=== PATIENT | male | born 1965 | race Caucasian/White ===

== ENCOUNTER 2024-01-18 12:39 | Emergency (ER) | payer MEDICARE, SELFPAY ==
[2024-01-18 12:41] VITALS: BP 182/111
[2024-01-18 13:11] VITALS: BMI 36.6
[2024-01-18 13:23] VITALS: BP 139/100
[2024-01-18 13:23] LABS: Hematocrit 45.2 % (39.0-52.0); Hemoglobin 15.2 g/dL (13.0-18.0); Mean Corp Hgb Conc. 33.6 g/dL (33.0-37.0); Mean Corpuscular Hgb 29.7 pg (27.0-31.0); Mean Corpuscular Volume 88.3 fL (80.0-94.0); Mean Platelet Volume 11.3 fL (7.4-10.4); Platelet Count 229 10^3/uL (130-400); Red Blood Cell Count 5.12 10^6/uL (4.70-6.10); Red Cell Dist. Width 14.4 % (11.5-14.5); White Blood Cell Count 9.2 10^3/uL (4.8-10.8)
[2024-01-18 13:30] VITALS: BP 130/80
--- NOTE | 2024-01-18 13:30 | ED.CVA ---
History of Present Illness
General
Chief Complaint: CVA/TIA Symptoms
Source: patient
Exam Limitations: none
Time Seen by Provider: 01/18/24 12:45
Nursing documentation reviewed up to this point in time: agreed with
Onset of Stroke Symptoms
Onset of symptoms known: Yes
Date of onset of symptoms: 01/17/24
Travel History
Have you had any contact with someone who has COVID-19?: No
Do you have any symptoms of coronavirus? Fever > 100 degrees, chills, cough, shortness of breath, sore throat, loss of taste or smell, muscle aches, or headache?: No
History of Present Illness
History of Present Illness:
Patient presents to ED secondary to sudden onset of left facial droop along with difficulty speech and difficulty closing his left eye, noted yesterday, but symptoms worse today. Denies headache. Denies loss of sensation or weakness. Denies
difficulty with swallowing. Denies difficulty with ambulation. Denies recent illness. Denies recent change in medications or diet. Denies previous history of similar symptoms.
Past History
Past History
ED Past Medical History: Asthma, Psychiatric (Anxiety, Depression) and Other (Diverticulitis, Genital Herpes, Anemia, GI bleed)
ED Past Surgical History: Appendectomy, Bowel resection (With colostomy, colostomy reversal 03/2019) and Other (Hernia repair)
Social History
Tobacco: Former smoker
Alcohol: None
Drug: None
Personal: Single
Living: with family
Employment: Not employed
Family History
Family History: Other (Noncontributory)
Review of Systems
Review of Systems
Allergies reviewed?: Yes
All Other Systems: ROS reviewed and negative except as documented in HPI and ROS
Constitutional: Reports no symptoms
Cardiac: Reports no symptoms
ABD/GI: Reports no symptoms
Musculoskeletal: Reports no symptoms
Skin: Reports no symptoms
Neurological: Reports other (Facial droop, speech difficulty)
Phy Exam
Physical Exam
Physical Exam:
Physical Exam
General: mild distress, not acutely ill. afebrile
Head: nc/at. eomi
Neck: supple. normal range of motion.
Heart: s1/s2 regular rate and rhythm, no murmur. equal radial pulses.
Lungs: no acute respiratory distress. clear bilaterally
Abdomen: normal bowel sounds. not tender.
Neuro: alert and oriented. left facial droop noted, unable to fully close left eye. unable to raise left eyebrow.
Skin: no rash
Psychiatric: well kept. interactive and cooperative
Extremities: no edema. no calf tenderness.
Course
Orders/Labs/Results
Orders:
Orders
01/18/24 12:50
CT Head W/o Iv Contrast Urgent
Comment:
Reason For Exam: left facial droop with headache
01/18/24 12:51
Electrocardiogram (*1) Urgent
Reason for Study: TIA/Stroke
EKG- Treatment ONCE
01/18/24 13:14
Complete Blood Count/No Diff Urgent
01/18/24 13:59
Basic Metabolic Panel Urgent
Magnesium Urgent
01/18/24 14:00
Lyme Progressive Urgent
Abnormal Lab Results
01/18/24
13:14
MPV 11.3 H fL
(7.4-10.4)
01/18/24 13:14
01/18/24 13:59
Vital Signs
Initial and Last Documented VS:
Initial Vital Signs
Temp Pulse Resp BP Pulse Ox
98.5 F 103 18 182/111 94
01/18/24 12:41 01/18/24 12:41 01/18/24 12:41 01/18/24 12:41 01/18/24 12:41
Last Documented Vital Signs
Temp Pulse Resp BP Pulse Ox
98.5 F 79 22 134/69 95
01/18/24 12:41 01/18/24 15:30 01/18/24 15:15 01/18/24 15:00 01/18/24 15:46
MDM/Problems Addressed
MDM/Problems Addressed:
CT head: No acute findings.
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 In light of patient's significant asymmetric findings, will start both prednisone as well as Valtrex, along with recommendation to follow-up PCP/neurology for reevaluation.
*Critical Care Note
Total Time (30-74mins, 75-104mins- exclusive of procedures): Not Applicable
ED Attending Note
-
Portions of this chart may have been created with voice recognition software.� Occasional wrong word or��sound alike� substitutions may have occurred due to the inherent limitations of voice recognition software.
Discharge Plan
Departure
Patient Disposition: Home (Routine Discharge)
Date of Disposition: 01/18/24
Time of Disposition: 15:43
Patient with high blood pressure during this ER visit?: Yes
Discharge Problem:
Barry's palsy
Instructions: Barry's Palsy (DC)
Prescriptions:
New
prednisone 20 mg tablet
60 mg PO DAILY 7 Days Qty: 21 0RF
valacyclovir [Valtrex] 1 gram tablet
1,000 mg PO Q8H Qty: 21 0RF
No Action
albuterol sulfate 2.5 MG/3 ML solution for nebulization
2.5 mg inhalation R Q4HPRN PRN (Reason: COUGH) Qty: 1 0RF
albuterol sulfate 1 PUFF HFA aerosol inhaler
1 puff inhalation R Q4HPRN PRN (Reason: SOB)
pantoprazole 40 MG tablet,delayed release (DR/EC)
40 mg PO BID 30 Days Qty: 60 0RF
ferrous sulfate [FeroSul] 325 MG tablet
325 mg PO DAILY 30 Days Qty: 30 0RF
pantoprazole [Protonix] 40 mg tablet,delayed release (DR/EC)
40 mg PO DAILY Qty: 30 0RF
valacyclovir [Valtrex] 1 gram tablet
1,000 mg PO TID Qty: 21 0RF
albuterol sulfate 90 mcg/actuation aerosol powdr breath activated
2 inh inhalation Q4H PRN (Reason: shortness of breath or wheezing) Qty: 1 0RF
albuterol sulfate 2.5 mg /3 mL (0.083 %) solution for nebulization
2.5 mg inhalation Q4H PRN (Reason: shortness of breath or wheezing) Qty: 90 0RF
clindamycin HCl 150 mg capsule
300 mg PO TID Qty: 7 0RF
albuterol sulfate [ProAir HFA] 90 mcg/actuation HFA aerosol inhaler
1 puff inhalation Q4HPRN PRN (Reason: shortness of breath) Qty: 6.7 0RF
Referrals:
Jitendra Adorno DO [Family Provider] -
Activity Restrictions/Additional Instructions:
As discussed, please follow-up with your primary care physician and/or referred neurologist for reevaluation next week. Your prescriptions have been sent electronically to [facility] pharmacy in [place].
Interventions
Interventions:
*Risk Screen - Suicide Last Done: 01/18/24 13:11
*General Assessment Last Done: 01/18/24 13:11
*Neglect/Abuse Screening Last Done: 01/18/24 13:11
ED- Fall Risk Assessment Last Done: 01/18/24 13:11
*ED COVID-19 Vaccine History Last Done: 01/18/24 13:11
*Nursing Disposition Last Done: 01/18/24 15:49
ED- Pulmonary Assessment Last Done: 01/18/24 13:11
ED- Neurological Assessment Last Done: 01/18/24 13:11
ED- Cardiac Assessment Last Done: 01/18/24 13:11
ED Swallowing Screen Last Done: 01/18/24 13:28
Discharge Date and Time
Discharge Date/Time: 01/18/24 15:49
Print Language: MOLDOVAN
[2024-01-18 13:45] VITALS: BP 130/84
[2024-01-18 14:00] VITALS: BP 142/83
[2024-01-18 14:31] LABS: Blood Urea Nitrogen 18 mg/dl (9-20); Carbon Dioxide 27 mmol/L (22-30); Chloride 102 mmol/L (98-107); Estimated Creatinine Clearance > 125 ml/min; Glucose 97 mg/dl (70-99); Magnesium 1.9 mg/dl (1.6-2.3); Potassium 4.2 mmol/L (3.5-5.1); Sodium 136 mmol/L (135-145); eGFR > 60.00
[2024-01-18 15:00] VITALS: BP 134/69
[2024-01-19 15:08] LABS: Lyme Antibody Screen, EIA Negative (Negative)
== END 2024-01-18 15:49 | disposition home or self-care (01) ==
LOC: EMR 12:39
PROVIDERS: EMERGENCY PHYSICIAN Emergency Medicine; FAMILY PHYSICIAN Family Medicine
DX: G51.0 Bell's palsy (principal); R03.0 Elevated blood-pressure reading, without diagnosis of hypertension; J45.909 Unspecified asthma, uncomplicated; F41.9 Anxiety disorder, unspecified; F32.A Depression, unspecified; K57.92 Diverticulitis of intestine, part unspecified, without perforation or abscess without bleeding; D64.9 Anemia, unspecified; Z87.891 Personal history of nicotine dependence; Z98.0 Intestinal bypass and anastomosis status; Z88.0 Allergy status to penicillin
CPT/HCPCS: 99284; 70450; 80048; 83735; 85027; 86618; 93005

== ENCOUNTER 2025-04-27 23:21 | Emergency (ER) | payer MEDICARE, SELFPAY ==
[2025-04-27 23:38] VITALS: BP 132/94
[2025-04-28 01:51] VITALS: BMI 35.5
--- NOTE | 2025-04-28 02:54 | ED.GENMED ---
History of Present Illness
<HERVE Blackburn - Last Filed: 04/28/25 03:28>
General
Chief Complaint: Musculo-Skeletal Complaint
Source: patient
Exam Limitations: none
Time Seen by Provider: 04/28/25 01:34
Nursing documentation reviewed up to this point in time: agreed with
History of Present Illness
History of Present Illness:
This patient is a 59-year-old male with PMH of asthma and diverticulitis who presents to the ED complaining of right knee pain. Patient reports carrying his dog down the stairs and falling from the second step from the floor. He states he landed on
his right knee with twisting.
Past History
<HERVE Blackburn - Last Filed: 04/28/25 03:28>
Past History
ED Past Medical History: Asthma, Psychiatric (Anxiety, Depression) and Other (Diverticulitis, Genital Herpes, Anemia, GI bleed)
ED Past Surgical History: Appendectomy, Bowel resection (With colostomy, colostomy reversal 03/2019) and Other (Hernia repair)
Patient has exhibited threatening behavior?: No
Social History
Tobacco: Former smoker
Alcohol: None
Drug: None
Personal: Single
Living: with family
Employment: Not employed
Family History
Family History: Other (Noncontributory)
Review of Systems
<HERVE Blackburn - Last Filed: 04/28/25 03:28>
Review of Systems
Allergies reviewed?: Yes
All Other Systems: ROS reviewed and negative except as documented in HPI and ROS
Constitutional: Reports no symptoms
EENT: Reports no symptoms
Respiratory: Reports no symptoms
Cardiac: Reports no symptoms
ABD/GI: Reports no symptoms
Musculoskeletal: Reports joint pain, joint swelling and muscle pain
Skin: Reports no symptoms
Neurological: Reports no symptoms
Endocrine: Reports no symptoms
Phy Exam
<HERVE Blackburn - Last Filed: 04/28/25 03:28>
General Physical Exam
General Presentation: well appearing
General age: appears stated age
General Skin: warm and dry
General Mental: alert
Cardiovascular Exam
Cardiovascular Exam: no edema and normal peripheral pulses
Pulmonary Exam
Pulmonary Exam: lungs clear
Oxygen Status: room air
Neurological Exam
Neurological Exam: alert and oriented x3
Musculoskeletal Exam
Musculoskeletal Exam: joint swelling (Right knee swelling, ecchymosis, and limited ROM)
Skin Exam
Skin Exam: warm/dry
Course
<HERVE Blackburn - Last Filed: 04/28/25 03:28>
Orders/Labs/Results
Orders:
Orders
04/27/25 23:41
Knee, Right 4 or More Views [CR Knee- Right 4 Or More View*] Urgent
Comment:
Reason For Exam: fall w/ pain
04/28/25 02:54
Ice Pack-Treatment DIRECTED
Location: right knee
Crutches-Treatment ONCE
Knee Immobilizer Right-Treatme ONCE
Vital Signs
Initial and Last Documented VS:
Initial Vital Signs
Temp Pulse Resp BP Pulse Ox
98.6 F 94 22 132/94 97
04/27/25 23:38 04/27/25 23:38 04/27/25 23:38 04/27/25 23:38 04/27/25 23:38
Last Documented Vital Signs
Temp Pulse Resp BP Pulse Ox
98.6 F 94 22 132/94 97
04/27/25 23:38 04/27/25 23:38 04/27/25 23:38 04/27/25 23:38 04/28/25 02:58
<Shahana Pineda DO - Last Filed: 04/28/25 03:38>
Orders/Labs/Results
Orders:
Orders
04/27/25 23:41
Knee, Right 4 or More Views [CR Knee- Right 4 Or More View*] Urgent
Comment:
Reason For Exam: fall w/ pain
04/28/25 02:54
Ice Pack-Treatment DIRECTED
Location: right knee
Crutches-Treatment ONCE
Knee Immobilizer Right-Treatme ONCE
Vital Signs
Initial and Last Documented VS:
Initial Vital Signs
Temp Pulse Resp BP Pulse Ox
98.6 F 94 22 132/94 97
04/27/25 23:38 04/27/25 23:38 04/27/25 23:38 04/27/25 23:38 04/27/25 23:38
Last Documented Vital Signs
Temp Pulse Resp BP Pulse Ox
98.6 F 94 22 132/94 97
04/27/25 23:38 04/27/25 23:38 04/27/25 23:38 04/27/25 23:38 04/28/25 02:58
<HERVE Blackburn - Last Filed: 04/28/25 03:28>
MDM/Problems Addressed
Differential Diagnosis Includes:
fracture, joint effusion, patellar subluxation, meniscal tear, ACL/MCL tear
MDM/Problems Addressed:
Right knee pain and swelling. Negative x-ray for fracture. Right knee will be placed in an immobilizer and limited weight bearing with crutches. Patient to follow-up with ortho.
<HERVE Blackburn - Last Filed: 04/28/25 03:28>
*Pulse Oximetry
SaO2: 97
Oxygen Mode of Delivery: Room air
<Shahana Pineda DO - Last Filed: 04/28/25 03:38>
*Radiology
Radiology exam reviewed: preliminary read by ED provider (Right knee x-rays shows no evidence of fracture. No dislocation.)
*Pulse Oximetry
Patient hypoxic: no
*Critical Care Note
Total Time (30-74mins, 75-104mins- exclusive of procedures): Not Applicable
ED Attending Note
<HERVE Blackburn - Last Filed: 04/28/25 03:28>
-
Portions of this chart may have been created with voice recognition software.� Occasional wrong word or��sound alike� substitutions may have occurred due to the inherent limitations of voice recognition software.
<Shahana Pineda DO - Last Filed: 04/28/25 03:38>
ED Attending Note
Patient seen and examined by attending physician: Yes
I performed the substantive portion of visit, reviewed & personally made and approve the management plan that is documented in note by myself or ARANZA.: Yes
ED Attending Note:
This is a 59-year-old gentleman who has history of asthma, anxiety/depression. 2 days ago while walking down his steps carrying his disabled dog he thought that he was at the bottom step but inadvertently had 1 more step to go, lost his balance and
fell forward and while trying to cradle his dog he twisted his right knee and struck his right medial knee on the ground. He denies head injury nor loss of consciousness.
He complains of moderate pain to his right knee primarily superior anterior aspect with moderate difficulty lifting his leg up feeling a sense of weakness of his quadricep muscles. He denies lower leg pain, no numbness and or tingling. He has been
taking a fair amount of [id number] naproxen over the past 2 days. No abdominal pain or nausea or vomiting. He has been ambulatory.
No history of similar episodes in the past.
59-year-old overweight gentleman appears somewhat older than stated age. Bright and alert, pleasant, appears in no acute distress.
Euvolemic.
Neck is supple, nontender.
Heart is regular rate and rhythm.
Lungs are clear to auscultation.
Abdomen is rotund, soft, nontender.
Right knee with subacute ecchymosis anteromedial aspect. There is mild to moderate soft tissue swelling superior anterior aspect of the knee. No specific tenderness nor malposition of the patella. Moderate difficulty with straight leg raising
with mild palpable defect of lateral distal quadricep musculature noted with straight leg raising. No palpable joint effusion. Negative anterior/posterior drawer. No laxity nor pain with medial/lateral strain. Peripheral pulses are full and
equal bilaterally. Distal sensation and strength intact.
Neuro: Awake alert and oriented x 3. No focal neurodeficits.
Concern for right knee sprain/strain/internal derangement. Concern for lateral quadricep tendon rupture. Concern for fracture.
Right knee x-ray obtained which shows no evidence of fracture. No dislocation.
Patient will be placed in a knee immobilizer and provided with crutches for ambulation assistance.
Will provide ice and discussed importance of elevation.
Recommend he discontinue naproxen and will add a course of diclofenac 75 mg twice daily. Along with this may take Tylenol as needed.
Will refer to orthopedics for follow-up.
Discharge Plan
Departure
Patient Disposition: Home (Routine Discharge)
Date of Disposition: 04/28/25
Time of Disposition: 03:24
Patient with high blood pressure during this ER visit?: No
Condition: Good
Discharge Problem:
Muscle strain of right knee, Concern for R quadriceps tendon rupture
Instructions: Muscle Strain (DC), Knee Immobilizer (DC), Quadriceps and Patellar Tendon Injuries, How to use crutches
Prescriptions:
New
diclofenac sodium 75 mg tablet,delayed release (DR/EC)
75 mg PO BID PRN (Reason: pain) Qty: 30 0RF
No Action
albuterol sulfate 2.5 MG/3 ML solution for nebulization
2.5 mg inhalation R Q4HPRN PRN (Reason: COUGH) Qty: 1 0RF
albuterol sulfate 1 PUFF HFA aerosol inhaler
1 puff inhalation R Q4HPRN PRN (Reason: SOB)
pantoprazole 40 MG tablet,delayed release (DR/EC)
40 mg PO BID 30 Days Qty: 60 0RF
ferrous sulfate [FeroSul] 325 MG tablet
325 mg PO DAILY 30 Days Qty: 30 0RF
pantoprazole [Protonix] 40 mg tablet,delayed release (DR/EC)
40 mg PO DAILY Qty: 30 0RF
valacyclovir [Valtrex] 1 gram tablet
1,000 mg PO TID Qty: 21 0RF
albuterol sulfate 90 mcg/actuation aerosol powdr breath activated
2 inh inhalation Q4H PRN (Reason: shortness of breath or wheezing) Qty: 1 0RF
albuterol sulfate 2.5 mg /3 mL (0.083 %) solution for nebulization
2.5 mg inhalation Q4H PRN (Reason: shortness of breath or wheezing) Qty: 90 0RF
clindamycin HCl 150 mg capsule
300 mg PO TID Qty: 7 0RF
albuterol sulfate [ProAir HFA] 90 mcg/actuation HFA aerosol inhaler
1 puff inhalation Q4HPRN PRN (Reason: shortness of breath) Qty: 6.7 0RF
prednisone 20 mg tablet
60 mg PO DAILY 7 Days Qty: 21 0RF
valacyclovir [Valtrex] 1 gram tablet
1,000 mg PO Q8H Qty: 21 0RF
Referrals:
Epifanio Nix MD [Active, Orthopedics] - Call in 1-3 days for appt
UNKNOWN - PT DOES,NOT KNOW [Family Provider]
Interventions
Interventions:
*Risk Screen - Suicide Last Done: 04/27/25 23:38
*General Assessment Last Done: 04/27/25 23:38
*Neglect/Abuse Screening Last Done: 04/27/25 23:38
*ED- Fall Risk Assessment Last Done: 04/28/25 01:51
*ED COVID-19 Vaccine History Last Done: 04/27/25 23:38
ED-Musculoskeletal Assessment Last Done: 04/28/25 01:51
Discharge Date and Time
Print Language: MALIAN
== END 2025-04-28 04:20 | disposition home or self-care (01) ==
LOC: EMR 23:21
PROVIDERS: EMERGENCY PHYSICIAN Emergency Medicine
DX: S86.911A Strain of unspecified muscle(s) and tendon(s) at lower leg level, right leg, initial encounter (principal); J45.909 Unspecified asthma, uncomplicated; Z87.891 Personal history of nicotine dependence; X50.1XXA Overexertion from prolonged static or awkward postures, initial encounter; Y93.01 Activity, walking, marching and hiking
CPT/HCPCS: 99283; 29505; 73564